=== PATIENT | male | born 1930 | race Caucasian/White ===

== ENCOUNTER → 2016-11-15 | Outpatient (CLI) | payer MEDICARE | LOC: RAD 09:02 | PROVIDERS: ATTEND Nurse Practitioner | DX: R10.9 Unspecified abdominal pain (principal); R19.4 Change in bowel habit; R63.4 Abnormal weight loss | CPT/HCPCS: 74177; 82565 ==

== ENCOUNTER 2017-08-25 19:48 | Emergency (ER) | payer MEDICARE ==
--- NOTE | 2017-08-25 20:46 | ER Document Report ---
ED Medical Screen (RME) - General Chief Complaint: Altered Mental Status, abdominal pain, weak Stated Complaint: DISORIENTED, WEAKNESS Time Seen by Provider: 08/25/17 20:41 Notes: Patient is a 87 year old male p/w with his with disorientation, decreased appetite and headache started 3 days ago. Starts headache comes and goes, taking apap and completely resolves. Denies fever. admits to chest pain, chills , denies nausea, vomiting. Dr. Ruggiero out of [facility]. Chest pain described as pressure that started around noon. Takes 7.5 mg of norco BID PRN pain. PMH; CAD with h/o CABG, PA, HTN, pre DM, former smoker I have greeted and performed a rapid initial assessment of this patient. A comprehensive ED assessment and evaluation of the patient, analysis of test results and completion of the medical decision making process will be conducted by additional ED providers. TRAVEL OUTSIDE OF THE [place] IN LAST 30 DAYS: No - Related Data Allergies/Adverse Reactions: No Known Allergies Allergy (Verified 07/07/16 19:39) Past Medical History - Past Medical History Cardiac Medical History: Reports: Hx Atrial Fibrillation - Questionable history , Hx Coronary Artery Disease, Hx DVT - recurrent, bilateral legs, Hx Heart Attack - x2, Hx Hypertension Denies: Hx Pulmonary Embolism Psychiatric Medical History: Denies: Hx Depression Past Surgical History: Reports: Hx Cardiac Surgery - CABG, Hx Cholecystectomy, Hx Coronary Artery Bypass Graft, Hx Orthopedic Surgery - alen knee replacements - Immunizations Hx Diphtheria, Pertussis, Tetanus Vaccination: Yes Physical Exam - Vital signs Vitals: Temp Pulse Resp BP Pulse Ox 99.7 F 86 22 H 148/77 H 95 08/25/17 20:17 08/25/17 20:17 08/25/17 20:17 08/25/17 20:17 08/25/17 20:17 - Notes Notes: PHYSICAL EXAM GENERAL: Alert, interacts well. HEAD: Normocephalic, atraumatic. EYES: Pupils equal, round, and reactive to light. Extraocular movements intact. ENT: Oral mucosa moist, tongue midline. LUNGS: Clear to auscultation bilaterally, no wheezes, rales, or rhonchi. No respiratory distress. HEART: Regular rate and rhythm. No murmurs, gallops, or rubs. EXTREMITIES: Moves all 4 extremities spontaneously. No edema, radial and dorsalis pedis pulses 2/4 bilaterally. No cyanosis. NEUROLOGICAL: Alert and oriented to person, and place. Face symmetric. Tongue protrudes midline. Extraocular motions intact. Pupils are 2 mm and equally reactive. Normal speech. 5 out of 5 strength in both the distal and proximal upper and lower extremities bilaterally. Pronator drift normal. PSYCH: Normal affect, normal mood. SKIN: Warm, dry, normal turgor. No rashes or lesions noted. Course - Vital Signs Vital signs: Temp Pulse Resp BP Pulse Ox 99.7 F 86 22 H 148/77 H 95 08/25/17 20:17 08/25/17 20:17 08/25/17 20:17 08/25/17 20:17 08/25/17 20:17
[2017-08-25] MEDS ORDERED: ASPIRIN 81 MG TABLET, CHEWABLE PO ONE (20:54)
--- NOTE | 2017-08-25 22:44 | RADIOLOGY REPORT (SQ) ---
EXAM DESCRIPTION: CT HEAD WITHOUT CLINICAL HISTORY: 87 years Male, disoriented, headache COMPARISON: 07/03/2013, images only. TECHNIQUE: No contrast. This exam was performed according to our departmental dose-optimization program, which includes automated exposure control, adjustment of the mA and/or kV according to patient size and/or use of iterative reconstruction technique. FINDINGS: Stable small/moderate left chronic subdural hematoma/fluid collection of low-attenuation compared with prior CT from July 03, 2013. The subdural collection measures 1.3 cm in thickness and causes mild mass effect on the left parietal lobe. No midline shift. 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
[2017-08-25 23:13] LABS: ABSOLUTE LYMPHOCYTES (AUTO) 1.5 10^3/uL (0.5-4.7); ABSOLUTE MONOCYTES (AUTO) 0.4 10^3/uL (0.1-1.4); ABSOLUTE NEUT (AUTO) 4.3 10^3/uL (1.7-8.2); BASOPHILS % (AUTO) 0.5 % (0-2); EOSINOPHILS % (AUTO) 0.7 % (0-6); HEMATOCRIT 44.5 % (37.9-51.0); HEMOGLOBIN 15.2 g/dL (13.5-17.0); LYMPHOCYTES % (AUTO) 23.3 % (13-45); MEAN CORPUSCULAR HEMOGLOBIN 32.1 pg (27.0-33.4); MEAN CORPUSCULAR HGB CONC 34.1 g/dL (32.0-36.0); MEAN CORPUSCULAR VOLUME 94 fl (80-97); MONOCYTES % (AUTO) 6.3 % (3-13); PLATELET COUNT 216 10^3/uL (150-450); RED BLOOD COUNT 4.74 10^6/uL (4.35-5.55); RED CELL DISTRIBUTION WIDTH 14.3 % (11.5-14.0); SEGMENTED NEUTROPHILS % (AUTO) 69.2 % (42-78); TOTAL CELLS COUNTED % (AUTO) 100 %; WHITE BLOOD COUNT 6.3 10^3/uL (4.0-10.5)
[2017-08-25 23:25] LABS: ALANINE AMINOTRANSFERASE 26 U/L (21-72); ALBUMIN 4.3 g/dL (3.5-5.0); ALKALINE PHOSPHATASE 52 U/L (38-126); ANION GAP 13 (5-19); ASPARTATE AMINO TRANSFERASE 30 U/L (17-59); BILIRUBIN,DIRECT 0.2 mg/dL (0.0-0.4); BLOOD UREA NITROGEN 15 mg/dL (7-20); CALCIUM 9.8 mg/dL (8.4-10.2); CARBON DIOXIDE 24 mmol/L (22-30); CHLORIDE 100 mmol/L (98-107); CREATINE KINASE 33 U/L (55-170); GLUCOSE 117 mg/dL (75-110); POTASSIUM 4.5 mmol/L (3.6-5.0); SODIUM 137.1 mmol/L (137-145)
[2017-08-25 23:37] LABS: NT PRO BNP 1600 pg/mL (<450)
[2017-08-25 23:45] LABS: TROPONIN I < 0.012 ng/mL
[2017-08-26 01:02] LABS: APPEARANCE,URINE CLEAR; BILIRUBIN,URINE NEGATIVE (NEGATIVE); COLOR,URINE YELLOW; GLUCOSE, URINE NEGATIVE (NEGATIVE); KETONES,URINE TRACE mg/dL (NEGATIVE); LEUKOCYTE ESTERASE,URINE NEGATIVE (NEGATIVE); NITRITE,URINE NEGATIVE (NEGATIVE); PROTEIN,URINE 100 mg/dL (NEGATIVE); URINE SPECIFIC GRAVITY 1.017
--- NOTE | 2017-08-26 01:58 | RADIOLOGY REPORT (SQ) ---
EXAM DESCRIPTION: CHEST SINGLE VIEW CLINICAL HISTORY: 87 years, Male, sob, weak COMPARISON: 07/03/2013. NUMBER OF VIEWS: One LIMITATIONS: None. FINDINGS: Moderate lung volume, normal cardiac silhouette, chronic atherosclerosis, and median sternotomy. IMPRESSION: No acute cardiopulmonary findings.
--- NOTE | 2017-08-26 02:24 | ER Document Report ---
ED General - General Chief Complaint: General Weakness Stated Complaint: DISORIENTED, WEAKNESS Time Seen by Provider: 08/25/17 20:41 Notes: Patient is an 87-year-old male with a past medical history of hyperlipidemia, A. fib chronically anticoagulated on Xarelto who presents with 2 days of intermittent confusion and generalized weakness. The patient is alert, oriented , and denies any complaints at the time of my assessment. His at the bedside reports intermittently over the past 2 days he has been acting in a strange manner, asking questions that do not make sense and seemed confused. She also reports that he seems somewhat weak when walking and slightly off balance. He has no history of similar symptoms in the past. Nothing seems to trigger the episodes of confusion they do seem to resolve spontaneously. She does note however that during his of his confusion he often complains of a headache and has elevated blood pressure. He has not seen his general doctor regarding these concerns. He has not had any falls or head trauma. At time of my assessment his only complaint is about a dull, constant throbbing pain to his right external ear which he states has been a recurring issue over the past several years. TRAVEL OUTSIDE OF THE [place] IN LAST 30 DAYS: No - Related Data Allergies/Adverse Reactions: No Known Allergies Allergy (Verified 07/07/16 19:39) Past Medical History - General Information source: Patient, Relative - Social History Smoking Status: Never Smoker Frequency of alcohol use: None Drug Abuse: None Lives with: Spouse/Significant other Family History: Reviewed & Not Pertinent Patient has suicidal ideation: No Patient has homicidal ideation: No - Past Medical History Cardiac Medical History: Reports: Hx Atrial Fibrillation - Questionable history , Hx Coronary Artery Disease, Hx DVT - recurrent, bilateral legs, Hx Heart Attack - x2, Hx Hypertension Denies: Hx Pulmonary Embolism Renal/ Medical History: Denies: Hx Peritoneal Dialysis Psychiatric Medical History: Denies: Hx Depression Past Surgical History: Reports: Hx Cardiac Surgery - CABG, Hx Cholecystectomy, Hx Coronary Artery Bypass Graft, Hx Orthopedic Surgery - alen knee replacements - Immunizations Hx Diphtheria, Pertussis, Tetanus Vaccination: Yes Hx Pneumococcal Vaccination: 10/13/11 Review of Systems - Review of Systems Notes: Constitutional: Negative for fever. HENT: Negative for sore throat. Positive for right ear pain Eyes: Negative for visual changes. Cardiovascular: Negative for chest pain. Respiratory: Negative for shortness of breath. Gastrointestinal: Negative for abdominal pain, vomiting or diarrhea. Genitourinary: Negative for dysuria. Musculoskeletal: Negative for back pain. Skin: Negative for rash. Neurological: Positive for headaches 10 point ROS negative except as marked above and in HPI. Physical Exam - Vital signs Vitals: Temp Pulse Resp BP Pulse Ox 99.7 F 86 22 H 148/77 H 95 08/25/17 20:17 08/25/17 20:17 08/25/17 20:17 08/25/17 20:17 08/25/17 20:17 Interpretation: Normal Notes: PHYSICAL EXAMINATION: GENERAL: Well-appearing, well-nourished and in no acute distress. HEAD: Atraumatic, normocephalic. EYES: Pupils equal round and reactive to light, extraocular movements intact, sclera anicteric, conjunctiva are normal. ENT: nares patent, oropharynx clear without exudates. Moist mucous membranes. There is a small skin avulsion of the right external ear with an associated purulent expression NECK: Normal range of motion, supple without lymphadenopathy LUNGS: Breath sounds clear to auscultation bilaterally and equal. No wheezes rales or rhonchi. HEART: Regular rate and rhythm without murmurs ABDOMEN: Soft, nontender, normoactive bowel sounds. No guarding, no rebound. No masses appreciated. EXTREMITIES: Normal range of motion, no pitting or edema. No cyanosis. NEUROLOGICAL: Face symmetric. Tongue protrudes midline. Extraocular motions intact. Pupils are 2 mm and equally reactive. Normal speech, normal gait. 5 out of 5 strength in both the distal and proximal upper and lower extremities bilaterally. Sensation is grossly intact throughout. Finger to nose testing normal. Pronator drift normal. PSYCH: Alert and oriented 4. SKIN: Warm, Dry, normal turgor, no rashes or lesions noted. Course - Re-evaluation Re-evalutation: 08/26/17 02:20 Presentation and an overall well-appearing patient in no acute distress who complains of generalized weakness. At time of evaluation, patient's vitals are within normal limits and they are denying any additional acute complaints. Physical examination without focal findings. No neurologic deficits. They deny any chest pain, shortness of breath, nausea, vomiting, or diarrhea. No dysuria or fever. Basic laboratories including and urinalysis are unremarkable. Troponin is also negative. Low clinical suspicion for ACS, occult pneumonia, acute intra-abdominal pathology, stroke, or transient ischemic attack based on clinical history, examination, and laboratories. CT of the head does demonstrate a chronic, unchanged subdural since 2012. I do not believe that this is the etiology of the presentation today. They have tolerated oral intake without difficulty. 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 There is also has an associated infection. Will start on topical mupirocin and I have instructed the patient to have a formal biopsy by dermatology. Patient has also had recurrent hypertension at home which may be the etiology of his intermittent weakness and confusion. Will start hydrochlorothiazide. At this time will discharge with return precautions and follow-up recommendations. Verbal discharge instructions given a the bedside and opportunity for questions given. Medication warnings reviewed. Patient is in agreement with this plan and has verbalized understanding of return precautions and the need for primary care follow-up in the next 24-72 hours. - Vital Signs Vital signs: Temp Pulse Resp BP Pulse Ox 98.4 F 86 22 H 148/77 H 95 08/26/17 00:41 08/25/17 20:17 08/25/17 20:17 08/25/17 20:17 08/25/17 20:17 - Laboratory Result Diagrams: 08/25/17 23:00 08/25/17 23:00 Laboratory results interpreted by me: 08/25/17 08/25/17 08/25/17 23:00 23:00 23:00 RDW 14.3 H Glucose 117 H Creatine Kinase 33 L NT-Pro-B Natriuret Pep 1600 H Urine Protein Urine Ketones Urine Urobilinogen 08/26/17 00:45 RDW Glucose Creatine Kinase NT-Pro-B Natriuret Pep Urine Protein 100 H Urine Ketones TRACE H Urine Urobilinogen 2.0 H - Diagnostic Test Radiology reviewed: Image reviewed, Reports reviewed Radiology results interpreted by me: 08/26/17 02:24 CT head: Right-sided subdural unchanged from prior Chest x-ray: No acute infiltrate or pneumothorax - EKG Interpretation by Me Additional EKG results interpreted by me: 08/26/17 02:27 Normal sinus rhythm. Rate 82. No ST elevations or depressions. QTC is 444. Discharge - Discharge Clinical Impression: Chronic subdural hematoma, Generalized weakness Altered mental status Qualifiers: Altered mental status type: unspecified Qualified Code(s): R41.82 - Altered mental status, unspecified Condition: Good Disposition: HOME, SELF-CARE Additional Instructions: Your labs, CT the head, chest x-ray do not show any acute concerning findings. He did have a chronic subdural hematoma that is not different today. CT scan report is included in your chart for your primary doctor's records. I do not believe that this is related to your presentation today. You will be started on an antibiotic ointment to apply to your ear for an infection. Please also have this area biopsied by manufacturing maintenance mechanic as this appears to likely be a squamous cell carcinoma. You are also been started on a blood pressure medication called hydrochlorothiazide as you have recently had elevated blood pressure and this may be related your symptoms. Return for worsening symptoms, focal weakness, numbness, vomiting, fever, chest pain, shortness of breath or any other symptoms that are worrisome to you. Prescriptions: RX: Hydrochlorothiazide 12.5 mg PO DAILY #30 tablet RX: Mupirocin 15 gm TP TID #15 oint...g. Referrals: STEPHANI CHANG MD [Primary Care Provider] - Follow up as needed
[2017-08-26 03:14] VITALS: BP 118/57
--- NOTE | 2017-08-26 09:29 | EKG REPORT ---
SEVERITY:- ABNORMAL ECG - SINUS RHYTHM FIRST DEGREE AV BLOCK NONSPECIFIC IVCD WITH LAD : Confirmed by: Jennifer Morales 26-Aug-2017 09:28:08
== END 2017-08-26 03:10 | disposition home or self-care (01) ==
LOC: ER 19:48
DX: I62.03 Nontraumatic chronic subdural hemorrhage (principal); R53.1 Weakness; R41.82 Altered mental status, unspecified; R51 Headache; R03.0 Elevated blood-pressure reading, without diagnosis of hypertension; H92.01 Otalgia, right ear; E78.5 Hyperlipidemia, unspecified; I48.91 Unspecified atrial fibrillation; Z79.01 Long term (current) use of anticoagulants
CPT/HCPCS: 93005; 99285; 36415; 82553; 82550; 85025; 80053; 81001; 84484; 83880; 71045; 70450; 93010; A9270

== ENCOUNTER 2018-01-10 10:32 | Emergency (ER) | payer MEDICARE ==
--- NOTE | 2018-01-10 10:50 | ER Document Report ---
ED GI/ - General Chief Complaint: Abdominal Pain Stated Complaint: STOMACH PAIN Time Seen by Provider: 01/10/18 10:42 Mode of Arrival: Ambulatory Information source: Patient Notes: Patient presents complaining of abdominal tenderness for the past 3 days with dark stools for the past 2 days. Patient states he does have a history of diverticulosis. Patient denies any nausea vomiting or diarrhea. Patient denies any fever or urinary symptoms. Patient denies any cough, cold symptoms, or chest pain. TRAVEL OUTSIDE OF THE [place] IN LAST 30 DAYS: No - HPI Patient complains to provider of: Abdominal pain. No: Diarrhea Onset: Other - 3 days Timing/Duration: Waxing and waning Quality of pain: Achy Pain Level: 1 Location: Other - Umbilical Associated symptoms: Constipation, Other - Dark colored stools. denies: Diarrhea, Fever, Nausea, Urinary hesitancy, Urinary frequency, Urinary retention , Urinary urgency, Vomiting Exacerbated by: Denies Relieved by: Denies Similar symptoms previously: No Recently seen / treated by doctor: Yes - Related Data Allergies/Adverse Reactions: No Known Allergies Allergy (Verified 01/10/18 11:03) Past Medical History - General Information source: Patient - Social History Smoking Status: Never Smoker Frequency of alcohol use: None Drug Abuse: None Lives with: Spouse/Significant other Family History: Reviewed & Not Pertinent - Past Medical History Cardiac Medical History: Reports: Hx Atrial Fibrillation - Questionable history , Hx Congestive Heart Failure, Hx Coronary Artery Disease, Hx DVT - recurrent, bilateral legs, Hx Heart Attack - x2, Hx Hypertension Denies: Hx Pulmonary Embolism Renal/ Medical History: Denies: Hx Peritoneal Dialysis Psychiatric Medical History: Denies: Hx Depression Past Surgical History: Reports: Hx Cardiac Surgery - CABG, Hx Cholecystectomy, Hx Coronary Artery Bypass Graft, Hx Orthopedic Surgery - alen knee replacements - Immunizations Hx Diphtheria, Pertussis, Tetanus Vaccination: Yes Hx Pneumococcal Vaccination: 10/13/11 Review of Systems - Review of Systems Constitutional: No symptoms reported. denies: Fever, Recent illness EENT: No symptoms reported Cardiovascular: No symptoms reported. denies: Chest pain, Syncope, Dizziness Respiratory: No symptoms reported. denies: Cough, Short of breath Gastrointestinal: Abdominal pain, Black stools. denies: Diarrhea, Nausea, Vomiting Genitourinary: No symptoms reported. denies: Dysuria, Flank pain Male Genitourinary: No symptoms reported Musculoskeletal: No symptoms reported Skin: No symptoms reported Hematologic/Lymphatic: No symptoms reported Neurological/Psychological: No symptoms reported Physical Exam - Vital signs Vitals: Temp Pulse Resp BP Pulse Ox 97.7 F 77 20 161/86 H 96 01/10/18 10:39 01/10/18 10:39 01/10/18 10:39 01/10/18 10:39 01/10/18 10:39 - General General appearance: Appears well, Alert In distress: None - HEENT Head: Normocephalic Eyes: Normal Conjunctiva: Normal Nasal: Normal Mouth/Lips: Normal Mucous membranes: Normal - Respiratory Respiratory status: No respiratory distress Chest status: Nontender Breath sounds: Normal. No: Rales, Rhonchi, Stridor, Wheezing Chest palpation: Normal - Cardiovascular Rhythm: Regular Heart sounds: S1 appreciated, S2 appreciated Murmur: No - Abdominal Inspection: Normal Distension: No distension Bowel sounds: Normal Tenderness: Tender - umbilical. No: McBurney's point, Lee's sign, Guarding Organomegaly: No organomegaly - Back Back: Normal, Nontender. No: CVA tenderness - Extremities General upper extremity: Normal inspection, Normal strength General lower extremity: Normal inspection, Normal strength - Neurological Neuro grossly intact: Yes Cognition: Normal Garita Coma Scale Eye Opening: Spontaneous Garita Coma Scale Verbal: Oriented Garita Coma Scale Motor: Obeys Commands Garita Coma Scale Total: 15 - Psychological Associated symptoms: Normal affect, Normal mood - Skin Skin Temperature: Warm Skin Moisture: Dry Skin Color: Normal Course - Re-evaluation Re-evalutation: 01/10/18 13:03 Patient's abdomen soft, no tenderness at this time. Patient without any nausea vomiting or diarrhea. Hemoccult test negative at this time. Patient presents with abdominal pain without signs of peritonitis or other life-threatening or serious etiology. Patient appears stable for discharge and has been instructed to return immediately if the symptoms worsen in any way, or in 8-12 hours if not improved for reevaluation. The patient has been instructed to return if the symptoms worsen or change in any way. Patient encouraged to follow-up with a GI doctor for recheck. - Vital Signs Vital signs: Temp Pulse Resp BP Pulse Ox 97.8 F 77 18 136/79 H 95 01/10/18 13:13 01/10/18 10:39 01/10/18 13:13 01/10/18 13:13 01/10/18 13:13 - Laboratory Result Diagrams: 01/10/18 10:58 01/10/18 10:58 Laboratory results interpreted by me: 01/10/18 01/10/18 01/10/18 10:58 10:58 11:18 Eosinophils % 7.1 H Est GFR (Non-Af Amer) 59 L Direct Bilirubin 0.5 H Total Protein 8.6 H Urine Protein 30 H Urine Urobilinogen 4.0 H Labs- Entire Visit 01/10/18 01/10/18 01/10/18 10:58 10:58 10:58 WBC 7.7 RBC 4.57 Hgb 14.5 Hct 42.7 MCV 94 MCH 31.7 MCHC 33.8 RDW 13.6 Plt Count 319 Seg Neutrophils % 54.2 Lymphocytes % 31.2 Monocytes % 6.3 Eosinophils % 7.1 H Basophils % 1.2 Absolute Neutrophils 4.1 Absolute Lymphocytes 2.4 Absolute Monocytes 0.5 Absolute Eosinophils 0.5 Absolute Basophils 0.1 PT 13.9 INR 1.02 APTT 30.9 Sodium 145.0 Potassium 4.5 Chloride 103 Carbon Dioxide 28 Anion Gap 14 BUN 19 Creatinine 1.18 Est GFR ( Amer) > 60 Est GFR (Non-Af Amer) 59 L Glucose 88 Calcium 9.1 Total Bilirubin 0.6 Direct Bilirubin 0.5 H Neonat Total Bilirubin Not Reportable Neonat Direct Bilirubin Not Reportable Neonat Indirect Bili Not Reportable AST 31 ALT 22 Alkaline Phosphatase 49 Total Protein 8.6 H Albumin 4.0 Lipase 32.8 Urine Color Urine Appearance Urine pH Ur Specific Muse Urine Protein Urine Glucose (UA) Urine Ketones Urine Blood Urine Nitrite Urine Bilirubin Urine Urobilinogen Ur Leukocyte Esterase Urine WBC (Auto) Urine RBC (Auto) U Hyaline Cast (Auto) Squamous Epi Cells Auto Urine Mucus (Auto) Urine Ascorbic Acid Stool Occult Blood 01/10/18 01/10/18 10:58 11:18 WBC RBC Hgb Hct MCV MCH MCHC RDW Plt Count Seg Neutrophils % Lymphocytes % Monocytes % Eosinophils % Basophils % Absolute Neutrophils Absolute Lymphocytes Absolute Monocytes Absolute Eosinophils Absolute Basophils PT INR APTT Sodium Potassium Chloride Carbon Dioxide Anion Gap BUN Creatinine Est GFR ( Amer) Est GFR (Non-Af Amer) Glucose Calcium Total Bilirubin Direct Bilirubin Neonat Total Bilirubin Neonat Direct Bilirubin Neonat Indirect Bili AST ALT Alkaline Phosphatase Total Protein Albumin Lipase Urine Color YELLOW Urine Appearance CLEAR Urine pH 6.0 Ur Specific Muse 1.019 Urine Protein 30 H Urine Glucose (UA) NEGATIVE Urine Ketones NEGATIVE Urine Blood NEGATIVE Urine Nitrite NEGATIVE Urine Bilirubin NEGATIVE Urine Urobilinogen 4.0 H Ur Leukocyte Esterase NEGATIVE Urine WBC (Auto) 1 Urine RBC (Auto) 0 U Hyaline Cast (Auto) 3 Squamous Epi Cells Auto <1 Urine Mucus (Auto) RARE Urine Ascorbic Acid NEGATIVE Stool Occult Blood NEGATIVE - Diagnostic Test Radiology reviewed: Image reviewed, Reports reviewed Discharge - Discharge Clinical Impression: Dark stools Abdominal pain Qualifiers: Abdominal location: unspecified location Qualified Code(s): R10.9 - Unspecified abdominal pain Condition: Stable Disposition: HOME, SELF-CARE Instructions: Abdominal Pain ([facility]) Additional Instructions: Return immediately for any new or worsening symptoms Followup with your primary care provider, call tomorrow to make a followup appointment Follow-up with your adoption agent for further evaluation, call Friday for an appointment Referrals: STEPHANI CHANG MD [Primary Care Provider] - Follow up as needed
[2018-01-10 11:09] LABS: ABSOLUTE BASOPHILS # (AUTO) 0.1 10^3/uL (0.0-0.2); ABSOLUTE EOSINOPHILS # (AUTO) 0.5 10^3/uL (0.0-0.6); ABSOLUTE LYMPHOCYTES (AUTO) 2.4 10^3/uL (0.5-4.7); ABSOLUTE MONOCYTES (AUTO) 0.5 10^3/uL (0.1-1.4); ABSOLUTE NEUT (AUTO) 4.1 10^3/uL (1.7-8.2); BASOPHILS % (AUTO) 1.2 % (0-2); EOSINOPHILS % (AUTO) 7.1 % (0-6); HEMATOCRIT 42.7 % (37.9-51.0); HEMOGLOBIN 14.5 g/dL (13.5-17.0); LYMPHOCYTES % (AUTO) 31.2 % (13-45); MEAN CORPUSCULAR HEMOGLOBIN 31.7 pg (27.0-33.4); MEAN CORPUSCULAR HGB CONC 33.8 g/dL (32.0-36.0); MEAN CORPUSCULAR VOLUME 94 fl (80-97); MONOCYTES % (AUTO) 6.3 % (3-13); PLATELET COUNT 319 10^3/uL (150-450); RED BLOOD COUNT 4.57 10^6/uL (4.35-5.55); RED CELL DISTRIBUTION WIDTH 13.6 % (11.5-14.0); SEGMENTED NEUTROPHILS % (AUTO) 54.2 % (42-78); TOTAL CELLS COUNTED % (AUTO) 100 %; WHITE BLOOD COUNT 7.7 10^3/uL (4.0-10.5)
[2018-01-10 11:32] LABS: INTERNATIONAL RATION (INR) 1.02; PARTIAL THROMBOPLASTIN TIME 30.9 SEC (23.5-35.8); PROTHROMBIN TIME 13.9 SEC (11.4-15.4)
[2018-01-10 11:36] LABS: APPEARANCE,URINE CLEAR; BILIRUBIN,URINE NEGATIVE (NEGATIVE); COLOR,URINE YELLOW; GLUCOSE, URINE NEGATIVE (NEGATIVE); KETONES,URINE NEGATIVE (NEGATIVE); LEUKOCYTE ESTERASE,URINE NEGATIVE (NEGATIVE); NITRITE,URINE NEGATIVE (NEGATIVE); PROTEIN,URINE 30 mg/dL (NEGATIVE); URINE SPECIFIC GRAVITY 1.019
[2018-01-10 11:38] LABS: ALANINE AMINOTRANSFERASE 22 U/L (21-72); ALKALINE PHOSPHATASE 49 U/L (38-126); ANION GAP 14 (5-19); ASPARTATE AMINO TRANSFERASE 31 U/L (17-59); BILIRUBIN,DIRECT 0.5 mg/dL (0.0-0.4); BILIRUBIN,TOTAL 0.6 mg/dL (0.2-1.3); BLOOD UREA NITROGEN 19 mg/dL (7-20); CALCIUM 9.1 mg/dL (8.4-10.2); CARBON DIOXIDE 28 mmol/L (22-30); CHLORIDE 103 mmol/L (98-107); GLUCOSE 88 mg/dL (75-110); LIPASE 32.8 U/L (23-300); POTASSIUM 4.5 mmol/L (3.6-5.0); TOTAL PROTEIN 8.6 g/dL (6.3-8.2)
--- NOTE | 2018-01-10 11:44 | RADIOLOGY REPORT (SQ) ---
EXAM DESCRIPTION: ACUTE ABDOMEN SERIES COMPLETED DATE/TIME: 01/10/2018 11:31 am REASON FOR STUDY: abd pain COMPARISON: 07/07/2016 NUMBER OF VIEWS: Three views. TECHNIQUE: Frontal chest, supine abdomen and upright/decubitus abdomen radiographic images acquired. LIMITATIONS: None. FINDINGS: CHEST: Lungs clear of infiltrates. FREE AIR: None. No abnormal gas collections. BOWEL GAS PATTERN: Nonobstructive pattern. No dilated loops or air fluid levels. CALCIFICATIONS: No suspicious calcifications. HARDWARE: Vena caval umbrella. SOFT TISSUES: No gross mass or suggestion of organomegaly. BONES: No acute fracture. No worrisome bone lesions. OTHER: No other significant finding. IMPRESSION: NO RADIOGRAPHIC EVIDENCE FOR ACUTE ABDOMINAL DISEASE. TECHNICAL DOCUMENTATION: JOB ID: [id number] [employer]- All Rights Reserved Reading location - IP/workstation name: [email or web address]
--- NOTE | 2018-01-10 12:45 | RADIOLOGY REPORT (SQ) ---
EXAM DESCRIPTION: CT ABD/PELVIS WITH IV ONLY COMPLETED DATE/TIME: 01/10/2018 12:32 pm REASON FOR STUDY: periumbilical pain, dark stools COMPARISON: None. TECHNIQUE: CT scan of the abdomen and pelvis performed using helical scanning technique with dynamic intravenous contrast injection. No oral contrast. Images reviewed with lung, soft tissue, and bone windows. Reconstructed coronal and sagittal MPR images reviewed. Delayed images for evaluation of the urinary system also acquired. All images stored on PACS. All CT scanners at this facility use dose modulation, iterative reconstruction, and/or weight based d osing when appropriate to reduce radiation dose to as low as reasonably achievable (ALARA). [facility]: Dose Right [facility]: CareDose [facility]: Dose Right [facility]: Teradose 4D [facility]: Salad Labs CONTRAST TYPE AND DOSE: contrast/concentration: Isovue 370.00 mg/ml; Total Contrast Delivered: 100.0 ml; Total Saline Delivered: 72.0 ml RENAL FUNCTION: Creatinine 1.18 RADIATION DOSE: CT Rad equipment meets quality standard of care and radiation dose reduction techniq ues were employed. CTDIvol: 13.6 - 18.1 mGy. DLP: 1857 mGy-cm.. LIMITATIONS: None. FINDINGS: LOWER CHEST: Bilateral pleural effusions. Basilar atelectasis. LIVER: Fatty liver. No focal masses. SPLEEN: Normal size. No focal lesions. PANCREAS: No masses. No significant calcifications. No adjacent inflammation or peripancreatic fluid collections. Pancreatic duct not dilated. GALLBLADDER: Surgically absent. ADRENAL GLANDS: No significant masses or asymmetry. RIGHT KIDNEY AND URETER: No solid masses. No significant calcifications. No hydronephrosis or hyd roureter. LEFT KIDNEY AND URETER: No solid masses. No significant calcifications. No hydronephrosis or hydr oureter. AORTA AND VESSELS: No aneurysm. Mural thrombus. Caval umbrella. RETROPERITONEUM: No retroperitoneal adenopathy, hemorrhage or masses. BOWEL AND PERITONEAL CAVITY: No masses or inflammatory changes. No free fluid or peritoneal masses. D iverticulosis. No diverticulitis. APPENDIX: Appears normal PELVIS: No mass. No free fluid. Normal bladder. ABDOMINAL WALL: No masses. No hernias. BONES: No significant or acute findings. OTHER: No other significant finding. IMPRESSION: Bilateral pleural effusions and basilar atelectasis. No acute findings in the abdomen. TECHNICAL DOCUMENTATION: JOB ID: [id number] Quality ID # [id number]: Final reports with documentation of one or more dose reduction techniques (e.g., Au tomated exposure control, adjustment of the mA and/or kV according to patient size, use of iterative reconstruction technique) 2010 [employer]- All Rights Reserved Reading location - IP/workstation name: [email or web address]
[2018-01-10 13:17] VITALS: BP 136/79
== END 2018-01-10 13:19 | disposition home or self-care (01) ==
LOC: ER 10:32
DX: K59.00 Constipation, unspecified (principal); R19.5 Other fecal abnormalities; R10.33 Periumbilical pain; I25.10 Atherosclerotic heart disease of native coronary artery without angina pectoris; I10 Essential (primary) hypertension; Z95.1 Presence of aortocoronary bypass graft; Z87.19 Personal history of other diseases of the digestive system; Z90.49 Acquired absence of other specified parts of digestive tract
CPT/HCPCS: 36415; 74022; 74177; 80053; 81001; 82272; 83690; 85025; 85610; 85730; 99284

== ENCOUNTER 2018-01-18 18:22 | Emergency (ER) | payer MEDICARE ==
--- NOTE | 2018-01-18 18:57 | ER Document Report ---
ED Medical Screen (RME) - General Chief Complaint: Abdominal Pain Stated Complaint: STOMACH PAIN Time Seen by Provider: 01/18/18 18:51 Notes: Patient is an 87-year-old male who presents with 8 days of epigastric and mid abdominal pain that is constant. Earlier in the day, he started developing subjective fevers and chills. He was seen in the ER 8 days ago for similar symptoms and had negative CAT scan and blood work. He also followed up with his primary care physician and GI doctor for this issue this week, but they were unable to find a cause for the pain. PE: NAD. Mild epigastric tenderness (exam limited in RME chair). Normal bowel sounds. I have greeted and performed a rapid initial assessment of this patient. A comprehensive ED assessment and evaluation of the patient, analysis of test results and completion of the medical decision making process will be conducted by additional ED providers. TRAVEL OUTSIDE OF THE [place] IN LAST 30 DAYS: No - Related Data Allergies/Adverse Reactions: No Known Allergies Allergy (Verified 01/18/18 18:30) Past Medical History - Social History Chew tobacco use (# tins/day): No Frequency of alcohol use: None Drug Abuse: None - Past Medical History Cardiac Medical History: Reports: Hx Atrial Fibrillation - Questionable history , Hx Congestive Heart Failure, Hx Coronary Artery Disease, Hx DVT - recurrent, bilateral legs, Hx Heart Attack - x2, Hx Hypertension Denies: Hx Pulmonary Embolism Renal/ Medical History: Denies: Hx Peritoneal Dialysis GI Medical History: Reports: Hx Gastroesophageal Reflux Disease Psychiatric Medical History: Denies: Hx Depression Past Surgical History: Reports: Hx Appendectomy, Hx Cardiac Surgery - CABG, Hx Cholecystectomy, Hx Coronary Artery Bypass Graft, Hx Orthopedic Surgery - alen knee replacements - Immunizations Hx Diphtheria, Pertussis, Tetanus Vaccination: Yes Physical Exam - Vital signs Vitals: Temp Pulse Resp BP Pulse Ox 98.7 F 89 18 132/78 H 94 01/18/18 18:35 01/18/18 18:35 01/18/18 18:35 01/18/18 18:35 01/18/18 18:35 Course - Vital Signs Vital signs: Temp Pulse Resp BP Pulse Ox 98.7 F 89 18 132/78 H 94 01/18/18 18:35 01/18/18 18:35 01/18/18 18:35 01/18/18 18:35 01/18/18 18:35 Doctor's Discharge - Discharge Referrals: STEPHANI CHANG MD [Primary Care Provider] - Follow up as needed
--- NOTE | 2018-01-18 19:25 | ER Document Report ---
ED General - General Chief Complaint: Abdominal Pain Stated Complaint: STOMACH PAIN Time Seen by Provider: 01/18/18 18:51 TRAVEL OUTSIDE OF THE [place] IN LAST 30 DAYS: No - HPI Notes: Patient is an 87-year-old male with a past medical history of chronic constipation, hyperlipidemia, A. fib chronically anticoagulated on Xarelto who presents to the ED complaining of continued intermittent lower abdominal pain with the right side being worse than the left. Patient states that his symptoms have been ongoing for the last 10 days and was evaluated for the same pain last weekend here in the ED and had a negative workup. Patient states that he did call and speak with his diabetes manager who switched his stool softener to another medicine which she believes is helping him. Patient states that he has not been straining as much to have a bowel movement and his bowels have been soft. He has not noticed any hematochezia or melena. Patient states that the pain will change in intensity, but is usually a dull ache. The pain does not radiate. He still eating and drinking without any difficulties, but does have a decreased p.o. intake over the last several months. states that he did have a colonoscopy and endoscopy in spring 2016. Denies any drug allergies. Patient is urinating normally. Denies any headache, fever, URI, sore throat, chest pain, palpitations, syncope, cough, shortness of breath, wheeze, dyspnea, nausea/vomiting/diarrhea, urinary retention, dysuria, hematuria , back pain, loss of control of bowel or bladder, numbness/tingling, saddle anesthesia, muscle paralysis/weakness, or rash. - Related Data Allergies/Adverse Reactions: No Known Allergies Allergy (Verified 01/18/18 18:30) Past Medical History - Social History Smoking Status: Never Smoker Chew tobacco use (# tins/day): No Frequency of alcohol use: None Drug Abuse: None Family History: Reviewed & Not Pertinent Patient has suicidal ideation: No Patient has homicidal ideation: No - Past Medical History Cardiac Medical History: Reports: Hx Atrial Fibrillation - Questionable history , Hx Congestive Heart Failure, Hx Coronary Artery Disease, Hx DVT - recurrent, bilateral legs, Hx Heart Attack - x2, Hx Hypertension Denies: Hx Pulmonary Embolism Renal/ Medical History: Denies: Hx Peritoneal Dialysis GI Medical History: Reports: Hx Gastroesophageal Reflux Disease Psychiatric Medical History: Denies: Hx Depression Past Surgical History: Reports: Hx Appendectomy, Hx Cardiac Surgery - CABG, Hx Cholecystectomy, Hx Coronary Artery Bypass Graft, Hx Orthopedic Surgery - alen knee replacements - Immunizations Hx Diphtheria, Pertussis, Tetanus Vaccination: Yes Hx Pneumococcal Vaccination: 10/13/11 Review of Systems - Review of Systems -: Yes All other systems reviewed and negative Physical Exam - Vital signs Vitals: Temp Pulse Resp BP Pulse Ox 98.7 F 89 18 132/78 H 94 01/18/18 18:35 01/18/18 18:35 01/18/18 18:35 01/18/18 18:35 01/18/18 18:35 - Notes Notes: PHYSICAL EXAMINATION: GENERAL: Well-appearing, well-nourished and in no acute distress. HEAD: Atraumatic, normocephalic. EYES: Pupils equal round and reactive to light, extraocular movements intact, sclera anicteric, conjunctiva are normal. ENT: Nares patent and without discharge. oropharynx clear without exudates. No tonsilar hypertrophy or erythema. Moist mucous membranes. No sinus tenderness. NECK: Normal range of motion, supple without lymphadenopathy LUNGS: Breath sounds clear to auscultation bilaterally and equal. No wheezes rales or rhonchi. HEART: Regular rate and rhythm without murmurs, rubs, gallops. ABDOMEN: Soft, nondistended abdomen. No guarding, no rebound. No masses appreciated. Normal bowel sounds present. No CVA tenderness bilaterally. + very mild tenderness to the RLQ and minimally to the LLQ (worse on rt per pt). No obvious pulsatile mass. Extremities: No cyanosis, clubbing, or edema b/l. Peripheral pulses 2+. Capillary refill less than 3 seconds. NEUROLOGICAL: Normal speech, normal gait. PSYCH: Normal mood, normal affect. SKIN: Warm, Dry, normal turgor, no rashes or lesions noted. Course - Re-evaluation Re-evalutation: 01/18/18 21:21 I did review this case with Dr. Pyle who is in agreement with dispo/plan. No other labs or imaging warranted at this time. Patient had a complete workup at his visit last week including CT scan and blood work which was unremarkable for any acute pathology. Patient is an afebrile, well-hydrated, 87-year-old male who presents to the ED with lower abdominal pain, unspecified. I do suspect that some of this could be related to constipation as noted on his KUB with stool throughout the colon. Vitals are acceptable without significant tachycardia, tachypnea, or hypoxia. PE is otherwise unremarkable. Patient's abdomen is soft and he does not show any sign of discomfort with palpation, but does state that he does have some "soreness" in his lower abdomen. CBC, CMP, urinalysis, lipase were acceptable at this time. Patient is tolerating p.o. without difficulties and is nontoxic- appearing. He has not had any acute changes in the symptoms since initial evaluation. I did review that he needs to observe for appendicitis in the area. Advised him that he will need to recheck with his PCM/gastroenterology for further evaluation and management. In the meantime, I will send him home with a prescription for magnesium citrate. Low suspicion/risk for bowel obstruction, acute cholecystitis, perforated diverticulitis, incarcerated hernia , pancreatitis, perforated ulcer, peritonitis, sepsis, or other systemic emergent condition at this time. Patient is aware that his condition can change from initial presentation and he needs to monitor symptoms closely and seek medical attention if any acute changes. Conservative measures otherwise for symptoms. Return to the ED with any worsening/concerning symptoms otherwise as reviewed in discharge. Patient is in agreement. - Vital Signs Vital signs: Temp Pulse Resp BP Pulse Ox 98.7 F 89 18 132/78 H 94 01/18/18 18:35 01/18/18 18:35 01/18/18 18:35 01/18/18 18:35 01/18/18 18:35 - Laboratory Result Diagrams: 01/18/18 19:46 01/18/18 20:30 Laboratory results interpreted by me: 01/18/18 01/18/18 01/18/18 19:12 19:46 20:30 WBC 13.5 H RBC 4.18 L Hgb 13.4 L Absolute Neutrophils 10.5 H Glucose 134 H Direct Bilirubin 0.5 H Urine Protein 100 H Urine Urobilinogen 4.0 H Discharge - Discharge Clinical Impression: Lower abdominal pain Constipation Qualifiers: Constipation type: unspecified constipation type Qualified Code(s): K59.00 - Constipation, unspecified Condition: Stable Disposition: HOME, SELF-CARE Instructions: Abdominal Pain ([facility]), Observation for Appendicitis ([facility]) Additional Instructions: Maintain adequate fluid and food intake [place] diet ([employer] Bananas, rice, apples, toast, etc Mag citrate as directed tylenol if needed Monitor for any worsening symptoms Make sure you are staying hydrated enough to urinate and have normal BM's Recheck with your PCM in 2-3 days Call your diabetes manager and schedule appointment for further evaluation and management Return to the ED with any worsening symptoms and/or development of fever, headache, chest pain, palpitations, syncope, shortness of breath, trouble breathing, abdominal pain, n/v/d, blood in stool/urine, weakness, or other worsening symptoms that are concerning to you. Prescriptions: Magnesium Citrate [Citrate of Magnesia 296 ml Bottle] 296 ml PO ONCE PRN #1 bottle PRN Reason: Forms: Elevated Blood Pressure Referrals: STEPHANI CHANG MD [Primary Care Provider] - 01/20/18 SHRUTHI WEBB MD [ACTIVE STAFF] - Follow up as needed
[2018-01-18 20:05] LABS: ABSOLUTE BASOPHILS # (AUTO) 0.1 10^3/uL (0.0-0.2); ABSOLUTE EOSINOPHILS # (AUTO) 0.1 10^3/uL (0.0-0.6); ABSOLUTE MONOCYTES (AUTO) 0.8 10^3/uL (0.1-1.4); ABSOLUTE NEUT (AUTO) 10.5 10^3/uL (1.7-8.2); BASOPHILS % (AUTO) 0.5 % (0-2); EOSINOPHILS % (AUTO) 0.9 % (0-6); HEMATOCRIT 38.5 % (37.9-51.0); HEMOGLOBIN 13.4 g/dL (13.5-17.0); MEAN CORPUSCULAR HGB CONC 34.8 g/dL (32.0-36.0); MEAN CORPUSCULAR VOLUME 92 fl (80-97); MONOCYTES % (AUTO) 5.7 % (3-13); PLATELET COUNT 297 10^3/uL (150-450); RED BLOOD COUNT 4.18 10^6/uL (4.35-5.55); RED CELL DISTRIBUTION WIDTH 13.6 % (11.5-14.0); SEGMENTED NEUTROPHILS % (AUTO) 77.9 % (42-78); TOTAL CELLS COUNTED % (AUTO) 100 %; WHITE BLOOD COUNT 13.5 10^3/uL (4.0-10.5)
[2018-01-18 20:16] LABS: APPEARANCE,URINE CLEAR; BILIRUBIN,URINE NEGATIVE (NEGATIVE); COLOR,URINE AMBER; GLUCOSE, URINE NEGATIVE (NEGATIVE); KETONES,URINE NEGATIVE (NEGATIVE); LEUKOCYTE ESTERASE,URINE NEGATIVE (NEGATIVE); NITRITE,URINE NEGATIVE (NEGATIVE); PROTEIN,URINE 100 mg/dL (NEGATIVE); URINE SPECIFIC GRAVITY 1.019
--- NOTE | 2018-01-18 20:24 | RADIOLOGY REPORT (SQ) ---
EXAM DESCRIPTION: KUB/ABDOMEN (SINGLE VIEW) COMPLETED DATE/TIME: 01/18/2018 8:00 pm REASON FOR STUDY: b/l lower abd pain COMPARISON: None. NUMBER OF VIEWS: One view. TECHNIQUE: Supine radiographic image of the abdomen acquired. LIMITATIONS: None. FINDINGS: BOWEL GAS PATTERN: Nonobstructive bowel gas pattern. No dilated loops. CALCIFICATIONS: No suspicious calcifications. SOFT TISSUES: No gross mass or suggestion of organomegaly. HARDWARE: Surgical clips from cholecystectomy. IVC filter. BONES: No acute fracture. No worrisome bone lesions. OTHER: No other significant finding. IMPRESSION: NO RADIOGRAPHIC EVIDENCE FOR ACUTE ABDOMINAL DISEASE. TECHNICAL DOCUMENTATION: JOB ID: [id number] [place]-[id number] 2010 [employer]- All Rights Reserved Reading location - IP/workstation name: [email or web address]
[2018-01-18 21:00] LABS: ALANINE AMINOTRANSFERASE 28 U/L (21-72); ALBUMIN 3.6 g/dL (3.5-5.0); ALKALINE PHOSPHATASE 52 U/L (38-126); ANION GAP 12 (5-19); ASPARTATE AMINO TRANSFERASE 26 U/L (17-59); BILIRUBIN,DIRECT 0.5 mg/dL (0.0-0.4); BLOOD UREA NITROGEN 15 mg/dL (7-20); CALCIUM 9.1 mg/dL (8.4-10.2); CARBON DIOXIDE 26 mmol/L (22-30); CHLORIDE 101 mmol/L (98-107); GLUCOSE 134 mg/dL (75-110); LIPASE 25.6 U/L (23-300); POTASSIUM 4.2 mmol/L (3.6-5.0); SODIUM 139.1 mmol/L (137-145)
[2018-01-18 21:38] VITALS: BP 133/74
== END 2018-01-18 21:38 | disposition home or self-care (01) ==
LOC: ER 18:22
DX: R10.30 Lower abdominal pain, unspecified (principal); K59.00 Constipation, unspecified; E78.5 Hyperlipidemia, unspecified; I48.91 Unspecified atrial fibrillation; Z79.02 Long term (current) use of antithrombotics/antiplatelets; Z95.1 Presence of aortocoronary bypass graft; Z90.49 Acquired absence of other specified parts of digestive tract; Z96.653 Presence of artificial knee joint, bilateral
CPT/HCPCS: 36415; 74018; 80053; 81001; 83690; 85025; 99284